=== PATIENT | male | born 2000 | race African-American/Black ===

== ENCOUNTER 2025-05-12 11:49 | Emergency (ER) | payer OTHER ==
[~2025-05-12] VITALS: Ht 190.5 cm; Wt 92.7 kg
[2025-05-12 12:11] LABS: BASO # 0.1 10^3/uL (0.0-0.2); BASO % 0.6 % (0.0-1.0); EOS # 0.1 10^3/uL (0.0-0.5); EOS % 0.3 % (0.0-3.0); LYMPH # 1.9 10^3/uL (1.5-5.0); LYMPH % 12.9 % (24.0-44.0); MONO # 0.9 10^3/uL (0.0-0.8); MONO % 6.5 % (2.0-8.0); NEUTROPHILS # 11.5 10^3/uL (1.5-8.5); NEUTROPHILS % 79.4 % (36.0-66.0); PLATELET COUNT, AUTOMATED 302 10^3/uL (150-450)
[2025-05-12 12:48] LABS: CALCIUM LEVEL 9.5 MG/DL (8.5-10.1); CARBON DIOXIDE LEVEL 26 MMOL/L (20-31); CHLORIDE LEVEL 101 MMOL/L (98-107); CK-MB VALUE MASS 5.8 NG/ML (<3.6); CPK CREATINE PHOSPHOKINASE 1085 U/L (46-171); CREATININE FOR GFR 1.04 MG/DL (0.70-1.30); GLOMERULAR FILTRATION RATE > 90.0 (>60); MB/CK RELATIVE INDEX 0.53 (< OR =4); POTASSIUM SERUM 4.8 MMOL/L (3.5-5.1); SODIUM LEVEL 140 MMOL/L (136-145)
[2025-05-12] MEDS: NS (Normal Saline) 0.9% 1,000 ML IV ONE (14:01)
[2025-05-12 14:37] LABS: CK-MB VALUE MASS 4.9 NG/ML (<3.6); MAGNESIUM LEVEL 1.6 MG/DL (1.8-2.4)
[2025-05-12 14:42] LABS: FREE T4 1.37 NG/DL (0.89-1.76)
[2025-05-12 14:48] LABS: CPK CREATINE PHOSPHOKINASE 994.0 U/L (46-171); MB/CK RELATIVE INDEX 0.49 (< OR =4)
[2025-05-12] MEDS: MAGNESIUM OXIDE 400 MG TAB PO ONE (15:01)
[2025-05-12 15:15] VITALS: BP 148/70
[2025-05-12] MEDS ORDERED: HOLTER MONITOR XX (15:15)
[2025-05-12 15:19] VITALS: O2SAT 98
[2025-05-12 15:25] VITALS: TEMP 98.3
== END 2025-05-12 15:38 | disposition home or self-care (01) ==
LOC: M ED 11:49 → EDBD 11:49 → M ED 15:38
DX: R00.2 Palpitations (principal); R07.9 Chest pain, unspecified; E83.42 Hypomagnesemia; I44.0 Atrioventricular block, first degree; F17.290 Nicotine dependence, other tobacco product, uncomplicated

== ENCOUNTER → 2025-05-20 | Outpatient (CLI) | payer OTHER ==
[~2025-05-20] MED LIST: HOLTER MONITOR XX
== END ==
LOC: M EKG 13:06
PROVIDERS: ATTEND Student in an Organized Health Care Education/Training Program
DX: R00.2 Palpitations (principal)